=== PATIENT | female | born 1975 | race Two or more races ===

== ENCOUNTER 2019-09-28 12:23 | Emergency (ER) | payer MEDICAID ==
[~2019-09-28] VITALS: Ht 167.6 cm; Wt 61.2 kg
--- NOTE | 2019-09-28 12:23 | NUR ---
Dr. Winkler at bedside for MSE
[2019-09-28] MEDS ORDERED: METFORMIN PO (12:29)
[2019-09-28] MEDS ORDERED: ABILIFY PO (12:29)
[2019-09-28] MEDS ORDERED: INSULIN REGULAR, HUMAN 300 UNIT/3 ML VIAL ONE (12:42)
[2019-09-28] MEDS ORDERED: INSULIN (12:43)
[2019-09-28] MEDS ORDERED: INSULIN REGULAR, HUMAN 300 UNIT/3 ML VIAL SQ ONE (12:45)
--- NOTE | 2019-09-28 14:20 | NUR ---
Patient discharged to home in stable condition. Written and verbal after care instructions given. Patient verbalizes understanding of instructions. Stressed follow up or return to ER for worsening s/s. Patient ambulating with steady gait. NAD noted. Refuses offer of fdc placement, patient currently resides at the [facility]. Tap card provided to patient
[2019-09-28 14:48] VITALS: BP 124/82
== END 2019-09-28 14:20 | disposition home or self-care (01) ==
LOC: ER 12:29
DX: E11.65 Type 2 diabetes mellitus with hyperglycemia (principal); Z59.0 Homelessness; U07.1 COVID-19; Z79.4 Long term (current) use of insulin; F32.9 Major depressive disorder, single episode, unspecified; Z79.899 Other long term (current) drug therapy
CPT/HCPCS: 82962 ×2; 96372; 99283; J1815; A4663